=== PATIENT | male | born 1940 | race Hispanic/Latino ===

== ENCOUNTER 2017-04-25 09:48 | Observation (INO) | payer MEDICARE ==
[2017-04-25 10:11] LABS: #Eosinphils 0.1 thou/uL (0.0-0.7); #Monocytes 0.7 thou/uL (0.11-0.59); #Neutrophils 7.5 thou/uL (1.40-6.50); %Basophils 0.1 % (0.0-1.0); %Monocytes 7.2 % (0.0-10.0); Hematocrit 38.4 % (42.0-52.0); Mean Platelet Volume 7.1 fL (7.4-10.4); White Blood Cell (WBC) Count 9.3 thou/uL (4.8-10.8)
[2017-04-25 10:25] LABS: ALT (SGPT) 14 U/L (8-55); AST (SGOT) 18 U/L (5-34); Alkaline Phosphatase 89 U/L (40-150); Anion Gap 11 mmol/L (10-20); BUN (Urea Nitrogen) 9 mg/dL (8.4-25.7); Bilirubin, Total 0.6 mg/dL (0.2-1.2); Calc. Creatinine Clearance 0 mL/min (70-130); Calcium 9.5 mg/dL (7.8-10.44); Carbon Dioxide 30 mmol/L (23-31); Chloride 100 mmol/L (98-107); Estimated GFR-MDRD Greater than 90; Globulin 3.4 g/dL (2.4-3.5); Protein, Total 7.4 g/dL (5.8-8.1)
[2017-04-25 10:27] LABS: PTT 28.3 SEC (22.9-36.1); Prothrombin Time 12.8 SEC (12.0-14.7)
[2017-04-25 10:28] LABS: Troponin I Less than 0.010 ng/mL (< 0.028)
[2017-04-25 13:08] VITALS: BMI 27.1
[2017-04-25] MEDS ORDERED: Guaifenesin DM 100-10/5 ML UDCUP PO PRN (13:13)
[2017-04-25] MEDS ORDERED: Acetaminophen 325 MG TAB PO PRN (13:13)
[2017-04-25] MEDS ORDERED: HumaLOG 300 UNITS/3 ML VIAL SC PRN (13:13)
[2017-04-25] MEDS ORDERED: Senokot 8.6 MG TAB PO PRN (13:13)
[2017-04-25] MEDS ORDERED: Dextrose 5% in Water 1,000 ML IV PRN (13:13)
[2017-04-25] MEDS ORDERED: Dextrose 50% Abboject 50 ML SYRINGE SLOW IVP PRN (13:13)
[2017-04-25 13:39] LABS: Troponin I Less than 0.010 ng/mL (< 0.028)
--- NOTE | 2017-04-25 13:51 | CT ---
CT OF THE BRAIN WITHOUT CONTRAST: COMPARISON: 05/06/16. HISTORY: Right-sided facial drooping and slurred speech which has now resolved. TECHNIQUE: Multiple contiguous axial images were obtained in a CT of the brain without contrast. FINDINGS: There are stable scattered hypodensities in the subcortical and periventricular white matter, likely secondary to small-vessel ischemic disease. No large confluent infarction is seen. There is no ev idence of hydrocephalus, intracranial hemorrhage, or extraaxial fluid collection. The calvarium and overlying soft tissues are unremarkable. The visualized paranasal sinuses and mas toid air cells are well aerated. IMPRESSION: No evidence of acute intracranial abnormality. Dr. Bear notified of the findings at 9:56 a.m. on 04/25/17. CODE CR POS: JOSE
--- NOTE | 2017-04-25 15:16 | HP ---
REASON FOR ADMISSION: Dizziness with questionable facial droop and right-sided weakness. HISTORY OF PRESENTING ILLNESS: Please note patient is a poor historian and his as well at bedside. She is slightly better. They both live together. Patient apparently felt very dizzy this morning. The also noticed some facial droop, which she cannot say to which side, but on repeated questioning states maybe right side. He was not complaining of any chest pain, palpitations , PND or orthopnea then. The son called EMS and was brought here. His vital signs were stable when EMS got to him. In view of this above history of questionable facial droop with dizziness, the patient has been placed on the stroke unit to rule out transient ischemic attack. Currently, he is not dizzy. Has no facial droop. Has no weakness and moves all 4 extremities freely in the ER gurney. The also mentions that patient normally gets up to 2-3 times at night for passing urine. She does not know if he has prostate issues. The patient has no new cough or fever. No complaints of expectoration. No wounds or ulcers anywhere. The patient's mentions that he was started on gabapentin a week back for peripheral neuropathy. PAST MEDICAL AND SURGICAL HISTORY: Diabetes mellitus type 2, hypertension, dyslipidemia, GERD, history of rheumatic fever at age 23, peripheral vascular disease, occasional vertigo, likely dementia/cognitive impairment, prior history of alcohol abuse, peripheral neuropathy, benign prostatic hypertrophy, hypertriglyceridemia, hypothyroidism. No prior surgeries. PERSONAL HISTORY: No history of smoking. Does not abuse alcohol or drugs. Lives with his . FAMILY HISTORY: Father had history of NM and stroke, at the age of 72 years. Mother at the age of 53 from unknown cancer. ALLERGIES: Allergic to PENICILLIN. CURRENT MEDICATIONS: Please note patient or his recall all his medications. They go to [place]. Per prior records, patient is on aspirin 81 mg daily, Zocor 20 mg at bedtime, Prozac 20 mg daily, Aricept 10 mg at bedtime, Coreg 6.25 mg twice daily, metformin 1000 mg extended release q.p.m., gabapentin 100 mg daily. REVIEW OF SYSTEMS: The following complete review of systems was negative, unless otherwise mentioned in the HPI or below: CONSTITUTIONAL: Weight loss or gain, ability to conduct usual activities. SKIN: Rash, itching. EYES: Double vision, pain. ENT/MOUTH: Nose bleeding, neck stiffness, pain, tenderness. CARDIOVASCULAR: Palpitations, dyspnea on exertion, orthopnea. RESPIRATORY: Shortness of breath, wheezing, cough, hemoptysis, fever or night sweats. GASTROINTESTINAL: Poor appetite, abdominal pain, heartburn, nausea, vomiting, constipation, or diarrhea. GENITOURINARY: Urgency, frequency, dysuria, nocturia. MUSCULOSKELETAL: Pain, swelling. NEUROLOGIC/PSYCHIATRIC: Anxiety, depression. ALLERGY/IMMUNOLOGIC: Skin rash, bleeding tendency. PHYSICAL EXAMINATION: GENERAL: The patient is a 76-year-old male who is currently not in any acute distress. VITAL SIGNS: Blood pressure 152/76, pulse 62 per minute, respiratory rate 18 per minute, temperature 98.7 degrees Fahrenheit, saturating 98% on room air. NECK: Supple, no elevated JVD. HEENT: Eyes, extraocular muscles intact. Pupils reacting to light. Oral cavity mucous membranes are dry. No exudates or congestion. CARDIOVASCULAR: S1, S2 heard. Regular rhythm. No murmurs. RESPIRATORY: Air entry 1+ bilaterally. No rales or rhonchi. ABDOMEN: Soft, bowel sounds heard. No tenderness, rigidity or guarding. EXTREMITIES: No peripheral edema or calf tenderness. VASCULAR SYSTEM: Peripheral pulses 1+ bilateral. No ischemic ulcerations or gangrene. CENTRAL NERVOUS SYSTEM: The patient is awake, but is not fully oriented. Responds well to verbal questions. Cranial nerves are grossly intact. Motor system 5/5 in all 4 extremities. Sensory system grossly intact. Gait was not tested. PSYCHIATRIC: Cannot be accurately assessed as patient is not fully oriented. He is not having any hallucinations or delusions at present. LABORATORY AND X-RAY FINDINGS: White count of 9, H\T\H 13 and 38, platelet count 183, MCV is 96 with 80% neutrophils. PT, INR, PTT within normal limits. Potassium is 3.4, BUN 9, creatinine 0.8, glucose 153. Liver enzymes within normal limits. Troponin x2 is negative. Albumin is 4.0. CT brain done shows no acute intracranial abnormality. The patient has small vessel ischemic disease with scattered hypodensities seen in the subcortical and periventricular white matter, no intracranial bleed is seen. EKG done shows sinus rhythm at 59 beats per minute. There are signs of LVH and poor R-wave progression seen. CLINICAL IMPRESSION AND PLAN: The patient will be under observation on the stroke unit for possible transient ischemic attack. Again, this is questionable with both and are poor historians. Currently, he has no focal neurologic signs on clinical exam. We will obtain orthostatic blood pressures for his dizziness. We will also obtain B12 and folic acid levels with his MCV nearly 96. Patient was abusing alcohol earlier in his life, but none at present. We will continue him on aspirin, Coreg, Prozac, atorvastatin and metformin as before. A small dose of Flomax will be added for him in view of frequent urination and getting up at night. If patient is on Aricept, this will be held for now in view of his current dizziness. The patient has established with Dr. Tran for his Cardiology. In view of his EKG changes and current dizziness, we will consult Dr. Bonilla. We will also obtain a nuclear stress test in the morning. [facility] MED[facility] CENTERPorfirio
--- NOTE | 2017-04-25 15:36 | MRI ---
BRAIN MRI WITHOUT IV CONTRAST: History: 76-year-old male with TIA, right sided facial droop, and slurred speech which have resolved. FINDINGS: Multiplanar, multisequence MRI examination of the brain is performed. There is some atrophy and sales representative groceries tawana white matter ischemic change noted. No evidence for an acute infarct. Normal expected vascular f low voids are noted. No mass or midline shift. No acute hemorrhage. IMPRESSION: Atrophy and chronic white matter ischemic change. No mass or bleed. No evidence for acute infarct. POS: JOSE
[2017-04-25] MEDS: Sodium Chloride 0.9% 1,000 ML IV SCH (16:13)
[2017-04-25] MEDS: Carvedilol 6.25 MG TAB PO SCH (16:14)
[2017-04-25 16:35] LABS: Troponin I 0.025 ng/mL (< 0.028)
[2017-04-25] MEDS ORDERED: metFORMIN XR 500 MG TAB PO SCH (17:00)
[2017-04-25] MEDS ORDERED: Atorvastatin Calcium 10 MG TAB PO SCH (21:00)
[2017-04-25] MEDS ORDERED: Tamsulosin HCl 0.4 MG CAP PO SCH (21:00)
[2017-04-25] MEDS ORDERED: Insulin Detemir 100 UNITS/ML 10 UNITS in Pre-Filled Syringe 1 EACH SC SCH (21:00)
[2017-04-25] MEDS: Famotidine 20 MG TAB PO SCH (21:06)
--- NOTE | 2017-04-25 21:06 | ULT ---
CAROTID ULTRASOUND: History: Transient ischemic attack. Evaluate for carotid stenosis. Comparison: None. Technique: Grayscale, color flow, doppler imaging and spectral waveform analysis performed. FINDINGS: Right carotid: There is evidence of calcified and noncalcified plaque in the right carotid artery. P eak systolic velocity of the common carotid artery is 152.7 cm/sec. Peak systolic velocity internal carotid 77.7 cm/sec. Systolic ICA/CCA ratio is 0.5. Left carotid: There is evidence of calcified and noncalcified plaque in the left carotid artery. Pea k systolic velocity in the common carotid artery is 100.8 cm/sec. Peak systolic velocity internal ca rotid artery is 117.5 cm/sec. Systolic ICA/CCA ratio is 1.2. Antegrade flow in bilateral vertebral arteries. IMPRESSION: 1. Mild (50-69%) stenosis of the right common carotid artery. 2. Calcified and noncalcified plaque in the carotid arteries. 3. Better interrogation with CT angiogram of the neck can be performed on a nonemergent basis given that the patient's brain MRI is negative for acute infarction. POS: JOSE
--- NOTE | 2017-04-25 22:19 | CON ---
DATE OF ADMISSION: 04/25/2017 DATE OF CONSULTATION: 04/25/2017 INDICATION FOR CONSULTATION: A 76-year-old patient with dizziness. HISTORY OF PRESENT ILLNESS: This is a very pleasant 76-year-old gentleman, who has been seen by Dr. Tran just last week in the office as possibly some mild degree of dementia, but the says alberto osorio does not have any dementia, but today she was helping him shave, and she noticed that he had what appeared to be a possible right-sided facial droop and he was unable to walk straight. She said his gait was unsteady, to call 911. He was brought to the emergency room. There was some question whe ther or not the patient had had a possible TIA. MRI was performed. He has chronic white matter ginny nges, but no acute findings. He has also been complaining of some light discomfort, but otherwise h as had no previous significant cardiac history that we are aware of. He has had no significant dizz iness in the past. PAST MEDICAL HISTORY: Significant for peripheral neuropathy, gastroesophageal reflux disease, perip heral vascular disease. He had rheumatic fever at age 23, benign prostatic hypertrophy, hypothyroid ism, and hypertriglyceridemia as well as hypertension and diabetes. SOCIAL HISTORY: He is , he has children who are alive and well. 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 FAMILY HISTORY: His father had an MN and also possibly CVA. ALLERGIES: He is allergic to PENICILLIN. MEDICATIONS: Prior to admission included vitamin, Zocor 40 mg at bedtime, Coreg 6.25 mg b.i.d., met formin 1000 mg q.p.m., aspirin 81 mg a day, losartan 25 mg a day, gabapentin 300 mg q.p.m., and fluo xetine 20 mg q. day. Since being in the hospital, he has been placed on Tylenol, aspirin 81 mg a da y, Lipitor 10 mg a day, Coreg 6.25 mg b.i.d., Lovenox 40 mg once a day for DVT prophylaxis, Prozac 2 0 mg daily, Pepcid 20 mg b.i.d. He is on insulin per sliding scale, Flomax 0.4 mg p.o. at bedtime, and Metformin 1000 mg b.i.d. ALLERGIES: PENICILLIN. REVIEW OF SYSTEMS: He mainly complains of occasional cough and dizziness and the unsteady gait this morning. He denied any chest pain or any significant shortness of breath. Otherwise, 12 point rev iew of systems unremarkable. PHYSICAL EXAMINATION: GENERAL: Reveals an elderly gentleman. VITAL SIGNS: Blood pressure 152/70, heart rate 64 and regular. He is afebrile, respiratory rate is 18. HEENT: Shows the head to be normocephalic and atraumatic. Carotid pulses are present. I could not hear any significant bruits. There is no JVD. The thyroid is not enlarged. Oral mucosa was pink and moist. CHEST: Clear to auscultation without rales, rhonchi or wheezing. CARDIOVASCULAR: Exam reveals a regular rate and rhythm. Normal S1 and S2. There is no S3 or S4. There were no significant murmurs, heaves, thrills, bruits or rubs noted. ABDOMEN: Soft and nontender with positive bowel sounds. No organomegaly or masses are noted. Femo ral pulses are present. EXTREMITIES: Show no clubbing, cyanosis or edema. Pedal pulses are present but are decreased. SKIN: Warm and dry. NEUROLOGIC: The patient appears to be intact. EKG shows a normal sinus rhythm with no acute changes. There is some indication that his probable l eft ventricular hypertrophy with some nonspecific changes. IMPRESSION: Possible transient ischemic attack, he may have further evaluation in the future with M RI thus far is negative. He has been seen by Dr. Tran just one week ago in the office. The pat ient tells me he had a stress test sometime back, but not recently. He has not had any cardiac cath eterization that I can determine. Overall, cardiac status has thus far seen to be relatively normal . He does have some mild hyponatremia with this is not be enough because he need significant abnorm alities. I believe echocardiogram has been ordered as well as carotid Doppler, but this is yet to b e done. We will evaluate this may become available. Further care of the patient may depend on the results of these studies. Dr. Tran will resume the care of the patient tomorrow, but at this ti me, overall, he seems to be relatively stable. He does have some mild hypertension and this can be addressed by the primary care physician or Dr. Tran tomorrow when he sees the patient, but this time, he remains relatively stable.
[2017-04-26 04:37] LABS: #Eosinphils 0.1 thou/uL (0.0-0.7); #Lymphocytes 1.4 thou/uL (1.20-3.40); #Monocytes 0.8 thou/uL (0.11-0.59); %Basophils 0.2 % (0.0-1.0); %Eosinophils 1.3 % (0.0-10.0); %Lymphocytes 15.1 % (21.0-51.0); %Monocytes 8.5 % (0.0-10.0); Hematocrit 35.4 % (42.0-52.0); Mean Platelet Volume 7.3 fL (7.4-10.4); Red Blood Cell (RBC) Count 3.69 mill/uL (4.70-6.10); White Blood Cell (WBC) Count 9.3 thou/uL (4.8-10.8)
[2017-04-26 05:01] LABS: Anion Gap 9 mmol/L (10-20); BUN (Urea Nitrogen) 8 mg/dL (8.4-25.7); Calc. Creatinine Clearance 94 mL/min (70-130); Calcium 8.7 mg/dL (7.8-10.44); Carbon Dioxide 31 mmol/L (23-31); Chloride 100 mmol/L (98-107); Cholesterol 142 mg/dl (< 200 Desired); Estimated GFR-MDRD Greater than 90; LDL Cholesterol, Calculated 77 mg/dL
[2017-04-26] MEDS: Potassium Chloride 20 MEQ TAB PO SCH ×3 (08:50→17:29)
[2017-04-26] MEDS: Sodium Chloride 0.9% 1,000 ML IV SCH (08:56)
[2017-04-26] MEDS ORDERED: Aspirin 325 mg Enteric Coated Tablet PO SCH (09:00)
[2017-04-26] MEDS ORDERED: Enoxaparin Sodium 40 MG/0.4 ML SYRINGE SC SCH (09:00)
[2017-04-26] MEDS ORDERED: FLUoxetine HCl 20 MG CAP PO SCH (09:00)
[2017-04-26] MEDS ORDERED: Aspirin 81 mg Enteric Coated Tablet PO SCH (09:00)
--- NOTE | 2017-04-26 10:09 | PDOC.PN ---
- Subjective Encounter Start Date: 04/26/17 Encounter Start Time: 07:00 Subjective: awake, no dizziness now -: is amb in room -: couldn't sleep last night - Objective Resuscitation Status: Resuscitation Status FULL:Full Resuscitation MAR Reviewed: Yes Vital Signs & Weight: Vital Signs (12 hours) Temp Pulse Resp BP Pulse Ox 04/26/17 08:50 98.8 F 57 L 20 04/26/17 08:00 98.8 F 57 L 20 152/67 H 98 04/26/17 03:46 98 F 61 16 135/64 99 04/25/17 23:23 98.4 F 57 L 16 154/68 H 95 Weight Weight 168 lb I&O: 04/25/17 04/26/17 04/27/17 06:59 06:59 06:59 Intake Total 1000 Balance 1000 Result Diagrams: 04/26/17 04:05 04/26/17 04:05 Additional Labs: Accuchecks 04/25/17 04/25/17 20:22 17:19 POC Glucose 128 H 148 H Phys Exam - Physical Examination HEENT: PERRLA, sclera anicteric Neck: no JVD, supple Respiratory: no wheezing, no rales Cardiovascular: RRR, no significant murmur Gastrointestinal: soft, non-tender, positive bowel sounds Musculoskeletal: no edema, pulses present Neurological: non-focal, moves all 4 limbs Dx/Plan (1) TIA (transient ischemic attack) Status: Resolved Comment: ?right facial droop with weakness, resolved (2) Dizziness Code(s): R42 - DIZZINESS AND GIDDINESS Status: Acute (3) HTN (hypertension) Code(s): I10 - ESSENTIAL (PRIMARY) HYPERTENSION Status: Chronic Qualifiers: Hypertension type: essential hypertension Qualified Code(s): I10 - Essential (primary) hypertension (4) Carotid arterial disease Code(s): I77.9 - DISORDER OF ARTERIES AND ARTERIOLES, UNSPECIFIED Status: Acute Qualifiers: Laterality: right Qualified Code(s): I77.9 - Disorder of arteries and arterioles, unspecified Comment: 50% CCA (5) DM type 2 (diabetes mellitus, type 2) Status: Chronic Qualifiers: Diabetes mellitus complication status: with neurologic complications Diabetes mellitus complication detail: with polyneuropathy Diabetes mellitus care home insulin use: without keno terminal operator use Qualified Code(s): E11.42 - Type 2 diabetes mellitus with diabetic polyneuropathy (6) Dyslipidemia Code(s): E78.5 - HYPERLIPIDEMIA, UNSPECIFIED Status: Chronic (7) Hypokalemia Code(s): E87.6 - HYPOKALEMIA Status: Acute (8) Cognitive impairment Code(s): R41.89 - OTH SYMPTOMS AND SIGNS W COGNITIVE FUNCTIONS AND AWARENESS Status: Chronic - Plan MRI showed no ac abnormalities -: echo and stress test is pending -: PT to mobilize pt more -: d/w and daughter at bedside -: may dc if above are normal, replace K * . Review of Systems - Medications/Allergies Allergies/Adverse Reactions: Allergies Allergy/AdvReac Type Severity Reaction Status Date / Time Penicillins Allergy Verified 10/24/15 22:48 Medications: Current Medications Acetaminophen (Tylenol) 650 mg PO Q4H PRN PRN Reason: Headache/Fever or Pain Aspirin (Ecotrin) 325 mg PO DAILY [facility] Atorvastatin Calcium (Lipitor) 10 mg PO [facility] Last Admin: 04/25/17 21:06 Dose: 10 mg Carvedilol (Coreg) 6.25 mg PO BID-[facility] Last Admin: 04/25/17 16:14 Dose: 6.25 mg Dextrose/Water (Dextrose 50%) 25 gm SLOW IVP PRN PRN PRN Reason: Hypoglycemia Enoxaparin Sodium (Lovenox) 40 mg SC 0900 [facility] Famotidine (Pepcid) 20 mg PO BID [facility] Last Admin: 04/25/17 21:06 Dose: 20 mg Fluoxetine HCl (Prozac) 20 mg PO DAILY [facility] Glucagon (Glucagon) 1 mg IM PRN PRN PRN Reason: Hypoglycemia Guaifenesin/Dextromethorphan (Robitussin Dm) 15 ml PO Q4H PRN PRN Reason: Cough Dextrose/Water (D5w) 1,000 mls @ 0 mls/hr IV .Q0M PRN; As Directed PRN Reason: Hypoglycemia Sodium Chloride (Normal Saline 0.9%) 1,000 mls @ 60 mls/hr IV .[id number] [facility] Last Admin: 04/26/17 08:56 Dose: 1,000 mls Insulin Detemir 10 units/ (Miscellaneous Medication) 0.1 mls @ 0 mls/hr SC [facility] Last Admin: 04/25/17 21:07 Dose: Not Given Insulin Human Lispro (Humalog) 0 units SC .MODERATE SLIDING SC PRN PRN Reason: Moderate Correctional Scale Potassium Chloride (K-Dur) 40 meq PO TID-[facility] Last Admin: 04/26/17 08:50 Dose: 40 meq Senna (Senokot) 2 tab PO HSPRN PRN PRN Reason: Constipation Tamsulosin HCl (Flomax) 0.4 mg PO [facility] Last Admin: 04/25/17 21:06 Dose: 0.4 mg
[2017-04-26] MEDS: Carvedilol 6.25 MG TAB PO SCH ×2 (15:09→17:29)
[2017-04-26] MEDS: Famotidine 20 MG TAB PO SCH (15:24)
[2017-04-26] MEDS ORDERED: ADENOSINE 60 MG/20 ML VIAL ONE (15:41)
[2017-04-26 15:58] VITALS: BP 142/65; TEMP 98.8
--- NOTE | 2017-04-26 17:21 | NM ---
CARDIAC SPECT: CLINICAL HISTORY: 76-year-old male with dizziness, chest pain, peripheral vascular disease, hypertension, diabetes, dy slipidemia. TECHNIQUE: A myocardial perfusion scan was performed using the single isotope one day protocol with technetium- 99m sestamibi. 9 mCi were injected intravenously for the rest exam followed by 27 mCi for the stress exam. Pharmacologic stress with Adenosine was monitored and interpreted by Dr. Tran. FINDINGS: Homogeneous tracer distribution is seen in the myocardial segments on stress and rest images without fixed or reversible defects. GATED SPECT LVEF: 63%. WALL MOTION EXAM: Normal. IMPRESSION: Normal myocardial perfusion scan. POS: JOSE
--- NOTE | 2017-04-27 01:08 | DIS ---
DATE OF ADMISSION: 04/25/2017 DATE OF DISCHARGE: 04/26/2017 DISCHARGE DISPOSITION: To home. PRIMARY DISCHARGE DIAGNOSES: Dizziness resolved, questionable right facial droop with weakness resolved on arrival in the ER with suspected transient ischemic attack secondary to above, moderate right common carotid stenosis, hypertension, diabetes mellitus type 2, dyslipidemia, cognitive impairment. PROCEDURES DONE DURING HOSPITALIZATION: The patient has had initial CT brain which showed no acute intracranial abnormality. MRI done showed atrophy and chronic white matter ischemic change, no mass or bleed. No evidence of acute infarct. Nuclear stress test done showed no reversible ischemia. Carotid Doppler done showed right common carotid artery 50-69% stenosis, H\T\H 12 and 35 , platelet count 153, total cholesterol 142, triglycerides 86, LDL 77, HDL 48, vitamin B12 of 270, folic acid 13.2, troponin x3 was negative. DISCHARGE MEDICATIONS: Aspirin 81 mg p.o. daily, Plavix 75 mg p.o. daily, Coreg 6.25 mg p.o. twice daily, fluoxetine 20 mg p.o. daily, gabapentin 300 mg p.o. at bedtime, Losartan 25 mg p.o. daily, simvastatin 40 mg p.o. at bedtime, Flomax 0.4 mg p.o. daily, metformin 1000 mg p.o. extended release q.p.m. ALLERGIES: To PENICILLIN. INPATIENT CONSULTS: Dr. Evnagelista/Dr. Tran for Cardiology. BRIEF COURSE DURING HOSPITALIZATION: The patient initially got admitted with complaints of dizziness. The also mentioned that he had right-sided facial droop and right-sided weakness which got completely resolved on arrival to ER. In view of this history, he was placed under observation on the stroke unit to rule out TIA. He has had a neurocardiac workup done. His carotid ultrasound shows 50-69% stenosis on right common carotid artery with calcified plaque in both carotids. He will need outpatient consultation with Vascular Surgery for close monitoring on the carotids. The patient also had expressed that he gets up at least 2-3 times to pass urine in the night with likely benign prostatic hypertrophy. He was placed on Flomax for the same. He needs to have outpatient Urology appointment in the next 4 weeks via primary care physician. His nuclear stress test for the heart was negative and showed no reversible ischemia. Echo with 2D Doppler results are pending at present. He was evaluated by Dr. Evangelista for Cardiology. He is hemodynamically stable and will be shortly discharged home if cleared by Cardiology today. Please see a [id number] documentation on [facility] for the day of discharge. DEBBY
== END 2017-04-26 18:00 | disposition home or self-care (01) ==
LOC: ERS 09:48 → 2SE 11:27
PROVIDERS: ADMIT Internal Medicine; ATTEND Internal Medicine
DX: R42 Dizziness and giddiness (principal); I65.21 Occlusion and stenosis of right carotid artery; I10 Essential (primary) hypertension; G31.84 Mild cognitive impairment of uncertain or unknown etiology; R29.810 Facial weakness; R53.1 Weakness; K21.9 Gastro-esophageal reflux disease without esophagitis; E11.51 Type 2 diabetes mellitus with diabetic peripheral angiopathy without gangrene; E11.42 Type 2 diabetes mellitus with diabetic polyneuropathy; N40.0 Benign prostatic hyperplasia without lower urinary tract symptoms; E78.1 Pure hyperglyceridemia; E03.9 Hypothyroidism, unspecified; Z79.84 Long term (current) use of oral hypoglycemic drugs; Z79.02 Long term (current) use of antithrombotics/antiplatelets; Z79.82 Long term (current) use of aspirin; Z79.899 Other long term (current) drug therapy; Z88.0 Allergy status to penicillin; Z86.59 Personal history of other mental and behavioral disorders
CPT/HCPCS: 70450; 70551; 78452; 80048; 80053; 80061; 82553; 82607; 82746; 82962 ×2; 84484 ×2; 85025 ×2; 85610; 85730; 93005; 93017; 93306; 93880; 96360; 96361; 97116; 97139 ×4; 99285; A9500; G0378 ×2; G8978; G8979; G8980; G8987; G8988; G8989; 36415; 36416; J0153; J1815

== ENCOUNTER 2017-05-14 09:43 | Outpatient (CLI) | payer MEDICARE ==
--- NOTE | 2017-05-14 13:00 | CT ---
CT ANGIOGRAM OF THE NECK: History: I65.21 - occlusive stenosis of right carotid artery. Comparison: Color doppler ultrasound 04-25-17 FINDINGS: CT angiogram of the neck performed after the intravenous administration of contrast. 3D rendering pro vided. The lung apices are clear. No pneumothorax. No significant mediastinal adenopathy. Cervical spine alignment is normal. No fracture. No listhesis. Right side: Right common carotid artery is patent. Using NASCET criteria there is no significant sten osis of the right common or internal carotid artery. The right vertebral artery is patent. There is 5 0% stenosis of a distal intervertebral artery at the basilar artery confluence. Left side: The common carotid artery is patent. Using NASCET criteria there is no significant stenosi s within the common carotid or internal carotid artery. Left vertebral artery is patent. No significant stenosis. IMPRESSION: Using NASCET criteria there is no hemodynamically significant stenosis of the bilateral common or int ernal carotid arteries. POS: [facility]
== END 2017-05-14 09:44 | disposition home or self-care (01) ==
LOC: CT 09:43
PROVIDERS: ATTEND Thoracic Surgery (Cardiothoracic Vascular Surgery)
DX: I65.21 Occlusion and stenosis of right carotid artery (principal)
CPT/HCPCS: 70498

== ENCOUNTER 2018-04-27 11:02 | Day surgery (SDC) | payer MEDICARE ==
[2018-04-26 11:16] VITALS: BMI 27.2
--- NOTE | 2018-04-27 00:46 | HP ---
DATE OF ADMISSION: 04/27/2018 SHORT STAY HISTORY AND PHYSICAL HISTORY OF PRESENT ILLNESS: Mr. London Pantoja is a 77-year-old male who comes for a colonoscopy and EGD. The patient had a history of colon polyp and underwent polypectomy in 2011. He comes in for a followup colonoscopy. The patient's bowel movements are fairly regular. No history of any rectal bleeding. The patient also has had some abdominal pain, discomfort off and on. On physical exam, there is markedly tender epigastric area. The patient comes for EGD and a colonoscopy because of the above reason. ALLERGIES: PENICILLIN. MEDICAL ILLNESSES: 1. Hypertension. 2. Hyperlipidemia. 3. Osteoarthritis. 4. Depression. 5. Colon polyp. 6. Type 2 diabetes mellitus. 7. Peripheral vascular disease. PHYSICAL EXAMINATION: VITAL SIGNS: Pulse is 70, blood pressure 130/80. HEENT: Conjunctivae clear. CARDIOVASCULAR: First and second heart sounds were normal. LUNGS: Clear to auscultation. ABDOMEN: Abdomen is soft. Abdomen is tender over the epigastric area. There is no rebound or guarding. Bowel sounds are normal. EXTREMITIES: Reveal no edema. ADMITTING DIAGNOSES: 1. Colon polyp. 2. Marked abdominal tenderness on physical exam over the epigastric area. PLAN: EGD and colonoscopy. MTDD
[2018-04-27] MEDS ORDERED: Fentanyl 100 MCG/2 ML VIAL ONE (13:11)
[2018-04-27] MEDS ORDERED: ePHEDrine/0.9% NaCl/PF SYRINGE 50 mg/10 ml ONE (16:47)
[2018-04-27] MEDS ORDERED: PROPOFOL 200 MG/20 ML VIAL ONE (16:47)
[2018-04-27] MEDS ORDERED: Lidocaine 1% PF 5 ML VIAL ONE (16:47)
--- NOTE | 2018-04-27 19:37 | OP ---
DATE OF PROCEDURE: 04/27/2018 OPERATIVE PROCEDURE: Colonoscopy with polypectomy. PREOPERATIVE DIAGNOSIS: A 77-year-old Latin-Tongan male with history of colon polyp, comes for a colonoscopy. POSTOPERATIVE DIAGNOSES: 1. Sigmoid diverticular disease. 2. Hemorrhoids. 3. Sessile polyp distal transverse colon, status post polypectomy. 4. Retained areas of stools with some areas could not visualize. PROCEDURE IN DETAIL: The patient was placed on his left lateral position and was given sedation by Anesthesia Department. A rectal exam was done before the scope was advanced into the rectum. No lesion felt on rectal exam. A Pentax video colonoscope was introduced into the rectum and advanced all the way to the cecum. The patient had pockets of retained solid stool intermittently in the colon. Some areas could not really wash out and cleaned out. The ileocecal area, cecum, ascending colon, no pathology seen. The hepatic flexure , proximal transverse colon, no pathology seen. Over the distal transverse colon, exclusive splenic flexure. The patient had a sessile polyp. This was removed with snare cautery with good hemostasis. The descending colon, no pathology seen. The sigmoid colon showed mild diverticulitis. Rectal hemorrhoids. MTDD
--- NOTE | 2018-04-27 22:10 | OP ---
DATE OF PROCEDURE: 04/27/2018 OPERATIVE PROCEDURE: Esophagogastroduodenoscopy with biopsy. PREOPERATIVE DIAGNOSIS: Chronic acid reflux, abdominal pain. POSTOPERATIVE DIAGNOSES: 1. Irregular Z-line. 2. Markedly edematous hyperemic mucosa over the gastric antrum indicative of gastritis. 3. Normal duodenum. PROCEDURE NOTE: The patient was placed on his left lateral position and was given sedation by Anesthesia Department. A Pentax video gastroscope under direct vision was passed down the oropharynx, past the GE junction, into the stomach and subsequently into descending duodenum. The vocal cords appeared healthy. The esophageal mucosa appears normal and does not show any esophageal erosion.. However, the Z-line is irregular. Biopsy obtained from the area. In the fundus and cardia and gastric body, no pathology seen. The gastric antrum shows edematous and erythematous mucosa indicating gastritis. The duodenal bulb, descending duodenum, no pathology seen. Biopsy obtained from the gastric antrum and gastric body. The stomach was decompressed and scope removed. DISCHARGE PLANNING: This is a 77-year-old male who came for a colonoscopy and EGD. The EGD showed gastritis. The colonoscopy showed a sessile transverse colon polyp and sigmoid diverticular disease. Unfortunately , the patient did have some retained stool. DISCHARGE RECOMMENDATIONS: 1. Patient advised to call me if he does have abdominal pain, hematochezia or fever. 2. In the absence of any of above symptoms, he is to come back to me in 2 weeks. MTDD
== END 2018-04-27 16:01 | disposition home or self-care (01) ==
LOC: SDC 11:02
PROVIDERS: ATTEND Internal Medicine Gastroenterology
PROC: 0DBL8ZX Excision of Transverse Colon, Via Natural or Artificial Opening Endoscopic, Diagnostic (ICD-10-PCS; principal; 2018-04-27)
PROC: 0DB78ZX Excision of Stomach, Pylorus, Via Natural or Artificial Opening Endoscopic, Diagnostic (ICD-10-PCS; 2018-04-27)
DX: Z12.11 Encounter for screening for malignant neoplasm of colon (principal); K63.5 Polyp of colon; K29.50 Unspecified chronic gastritis without bleeding; B96.81 Helicobacter pylori [H. pylori] as the cause of diseases classified elsewhere; K20.9 Esophagitis, unspecified; K57.30 Diverticulosis of large intestine without perforation or abscess without bleeding; K64.9 Unspecified hemorrhoids; I10 Essential (primary) hypertension; E78.5 Hyperlipidemia, unspecified; M19.90 Unspecified osteoarthritis, unspecified site; F32.9 Major depressive disorder, single episode, unspecified; E11.51 Type 2 diabetes mellitus with diabetic peripheral angiopathy without gangrene; I73.9 Peripheral vascular disease, unspecified; Z86.010 Personal history of colon polyps; Z79.82 Long term (current) use of aspirin; Z79.84 Long term (current) use of oral hypoglycemic drugs; Z79.899 Other long term (current) drug therapy; Z88.0 Allergy status to penicillin
CPT/HCPCS: 88305; 88312; 88313; J2001; J2704; J3010

== ENCOUNTER 2018-07-03 17:12 | Inpatient (IN) | payer MEDICARE ==
--- NOTE | 2018-07-03 18:17 | PDOC.FPRHP ---
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 Pt was originally brought to ER for increased agitation/confusion at home and generally appearing to be unsteady on his feet. Pt has a baseline level of confusion that has worsened over the years to the point that he now forgets the names of dear loved ones. This has been acutely worsened over the last day. and daughter of the pt deny any other symptoms or complaints at this time what so ever. ED Course: Pt was started on NS 200ml/hr - Allergies/Adverse Reactions Allergies Allergy/AdvReac Type Severity Reaction Status Date / Time Penicillins Allergy Verified 10/24/15 22:48 - Home Medications Medication Instructions Recorded Confirmed Type Carvedilol [Coreg] 6.25 mg PO BID- 10/18/15 04/26/18 History Simvastatin [Zocor] 40 mg PO HS 10/18/15 04/26/18 History Vit D3-Vit K/Berberine/Hops 1 tablet PO DAILY 10/18/15 04/26/18 History [Ostera Tablet] metFORMIN HCl [Metformin ER 1,000 mg PO QPM- 10/18/15 04/26/18 History Gastric] FLUoxetine HCl [Fluoxetine HCl] 20 mg PO DAILY 04/25/17 04/26/18 History Gabapentin 300 mg PO HS 04/25/17 04/26/18 History Losartan Potassium 25 mg PO DAILY 04/25/17 04/26/18 History Tamsulosin HCl [Flomax] 0.4 mg PO BID 04/26/18 04/26/18 History Losartan Potassium 25 mg PO DAILY 07/04/18 07/04/18 History Potassium 99 mg PO DAILY 07/04/18 07/04/18 History - History PMHx: HTN, DM2, HLD, hyponatremia PSHx: none FHx: CAD, breast cancer Social: former smoker, unkown packyears, denies etoh/drugs - Review of Systems ROS unobtainable: due to mental status Respiratory: denies: shortness of breath Cardiovascular: denies: chest pain Genitourinary: denies: dysuria - Vital signs BP: [134/90] HR: [76] RR: [18] Tmax: [98.9] Pox: [100]% on [ra] Wt: [85kg] - Physical Exam Constitutional: other (mild distress due to confusion and general restlessness) HEENT: normocephalic and atraumatic, EOMI, grossly normal vision, grossly normal hearing, MMM Neck: supple, trachea midline Chest: no-tender to palpation, no lesions Heart: RRR, normal S1/S2 Lungs: CTAB, no respiratory distress Abdomen: soft, non-tender Musculoskeletal: normal structure, normal tone Neurological: no focal deficit -Neurological: A&O x1 Skin: no rash/lesions, good turgor, capillary refill <2 seconds Heme/Lymphatic: no purpura, no petechia -Psychiatric: poor judgment/insight FMR H&P: Results - Labs Result Diagrams: 07/04/18 04:40 07/04/18 04:40 FMR H&P: A/P - Problem List (1) Hyponatremia Current Visit: No Status: Acute Code(s): E87.1 - HYPO-OSMOLALITY AND HYPONATREMIA (2) Cognitive impairment Current Visit: No Status: Chronic Code(s): R41.89 - OTH SYMPTOMS AND SIGNS W COGNITIVE FUNCTIONS AND AWARENESS (3) Leukocytosis Current Visit: Yes Status: Acute Code(s): D72.829 - ELEVATED WHITE BLOOD CELL COUNT, UNSPECIFIED (4) Anemia Current Visit: Yes Status: Acute Code(s): D64.9 - ANEMIA, UNSPECIFIED (5) DM type 2 (diabetes mellitus, type 2) Current Visit: No Status: Chronic Qualifiers: Diabetes mellitus snf insulin use: without snf use Diabetes mellitus complication status: with neurologic complications Diabetes mellitus complication detail: with polyneuropathy Qualified Code(s): E11.42 - Type 2 diabetes mellitus with diabetic polyneuropathy (6) Dyslipidemia Current Visit: No Status: Chronic Code(s): E78.5 - HYPERLIPIDEMIA, UNSPECIFIED (7) HTN (hypertension) Current Visit: No Status: Chronic Code(s): I10 - ESSENTIAL (PRIMARY) HYPERTENSION Qualifiers: Hypertension type: essential hypertension Qualified Code(s): I10 - Essential (primary) hypertension - Plan 77yo M with pmh of hyponatremia and undiagnosed dementia presenting from outside ED with symptomatic hyponatremia Severe 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 Family reports hx of hyponatremia and that they have been unable to keep him from drinking copious amounts of water. P- stat recheck BMP - fluid restriction - will consider NS 3% bolus at 25ml/hr if Na does not increase - BMP Q2hr Mild Leukocytosis A- Likely stress response. No source of infection, no s/s of infection. normal CT abd, CXR, lactic acid and UA. P- will obtain procal Normocytic anemia -At baseline and likely dilutional HTN -will restart home coreg, the will obtain home meds list tricia. Will restart home meds when list is obtained. DM2 -Will restart home meds when list is obtained. -SSI, achs accuchecks HLD -Will restart home meds when list is obtained. disposition: Admit to inpatient telemetry anticipate more than 2 midnights FMR H&P: Upper Level - Pertinent history 77 yo HM with PMH of dementia, HTN, DM2, and previous episodes of hyponatremia presenting to outside ER due to vague complaints of not feeling well. On initial workup, pt was found to have a sodium of 112. Pt has a history of drinking large amounts of water and has had a sodium level as low as 104. Pt's states pt has complained of diffuse abd pain and VICTORIA and has been drinking all liquids in sight. In ER, pt received: 1500 mL NS - Pertinent findings VSS Gen: NAD but confused and somewhat agitated moving around in bed CV: RRR Resp: unlabored, CTAB Abd: BS+, nondistended, NTTP - Plan Date/Time: 07/03/181816 IBijan MD PGY3, have evaluated this patient and agree with findings/ plan as outlined by operations intern resident. Pertinent changes/additions are listed here. 1. 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 Pt did not have osmolality or urine studies done and was given NS in ER. History, however, consistent with primary polydipsia. -Will recheck BMP at this time to ensure sodium is not still decreasing. If Na is stable and not lowered, can likely transition pt to fluid restriction with close monitoring on telemetry. -If pt's sodium has decreased, will give small bolus of hypertonic 3% NS. -Avoid correction greater than 8 mmol/L in 24 hours. -BMPs q4h 2. Mild Leukocytosis -No signs or symptoms of infection with normal CT abd, CXR, lactic acid and UA. -Obtain procalcitonin, but pt likely does not need abx therapy at this time. Likely secondary to stress response. 3. Normocytic anemia -At baseline and likely somewhat dilutional, continue to monitor. disposition: Admit to inpatient telemetry for anticipated length of stay greater than two midnights, pending clinical course. Addendum - Attending - Attending Attestation Date/Time: 07/03/181936 I personally evaluated the patient and discussed the management with Dr. García and Dr. Webb I agree with the History, Examination, Assessment and Plan documented above with any addition or exceptions noted below. 77 yo male with multiple medical conditions transfered from outside ER for hyponatriemia. Patient's and daughter are historians. Patient with history of dementia and currently with acute delirum due to low sodium. Patient with past history of severe symptomatic hyponatriemia. Lowest value 104. Previous caused by polydypsia. Per family report patient has been only drinking water over the past few days. They have tried to prevent but patient continued to persistently drink fluids. Per he has complained of VICTORIA and abdominal pain. Patient have been extremely confused and restless today. VS reviewed. Labs reviewed. Imaging reviewed. Very confused on exam. Not oriented. Unable to focuse RRR. No murmurs. CTA bilaterally. No W/R/C. NT/ND. BS present 1. Severe, subacute hyponatriemia: Currently cause of delirium. Will treat with 100 mL of 3% NS. Repeat Na level in 1 to 2 hours. Will correctly slowly due to risk for ODS. Will stay around 6 mEq per 24 hours. Likely cause is polydypsia. Has past history. Will fluid restrict. Involve nephro as needed. Monitor other electrolytes. Not able to perform full work up due to use of NS x 2L prior to arrival. 2. Dementia now with acute delirium: Continue home meds. Continue to redirect as able. Try not to use chemical restriction due to possible cause of SAIDH unless really necessary. Would not use benzos if able. Family to stay at bedside. 3. HTN: Continue home meds. Past imaging/records reviewed. ECHO and stress 2017 with grossly normal cardiac function. Monitor on tele due to cardiovascular risk related to electrolyte abnormalities. 4. HLD: Continue home meds. 5. DM: Continue home meds. 6. DVT ppx: Lovenox ABrayMD
[2018-07-03 19:51] LABS: Anion Gap 15 mmol/L (10-20); BUN (Urea Nitrogen) 9 mg/dL (8.4-25.7); Calc. Creatinine Clearance 0 mL/min (70-130); Calcium 8.6 mg/dL (7.8-10.44); Carbon Dioxide 21 mmol/L (23-31); Chloride 81 mmol/L (98-107); Estimated GFR-MDRD Greater than 90; Glucose 124 mg/dL (83-110); Potassium 3.4 mmol/L (3.5-5.1)
[2018-07-03 19:54] LABS: Sodium 114 mmol/L (136-145)
[2018-07-03 21:05] VITALS: BMI 29.6
[2018-07-03] MEDS ORDERED: Dextrose 5% in Water 1,000 ML IV PRN (21:09)
[2018-07-03] MEDS ORDERED: Dextrose 50% Abboject 50 ML SYRINGE SLOW IVP PRN (21:09)
[2018-07-03] MEDS ORDERED: Acetaminophen 325 MG TAB PO PRN (21:09)
[2018-07-03] MEDS ORDERED: HumaLOG 300 UNITS/3 ML VIAL SC PRN (21:09)
[2018-07-03] MEDS ORDERED: Sodium Chloride 0.9% 1,000 ML IV SCH (21:15)
[2018-07-03] MEDS ORDERED: Enoxaparin Sodium 40 MG/0.4 ML SYRINGE SC SCH (21:30)
[2018-07-03] MEDS ORDERED: Carvedilol 6.25 MG TAB PO SCH (21:45)
[2018-07-03 21:46] LABS: Anion Gap 13 mmol/L (10-20); BUN (Urea Nitrogen) 9 mg/dL (8.4-25.7); Calc. Creatinine Clearance 96 mL/min (70-130); Calcium 8.7 mg/dL (7.8-10.44); Carbon Dioxide 21 mmol/L (23-31); Chloride 81 mmol/L (98-107); Estimated GFR-MDRD Greater than 90; Glucose 145 mg/dL (83-110); Potassium 3.2 mmol/L (3.5-5.1)
[2018-07-03 21:47] LABS: Sodium 112 mmol/L (136-145)
[2018-07-03] MEDS ORDERED: Sodium Chloride 3% 100 ML IVPB SCH (22:00)
[2018-07-03] MEDS ORDERED: Potassium Chloride 20 MEQ TAB PO SCH (22:15)
[2018-07-03] MEDS ORDERED: Metoprolol Tartrate 5 MG/5 ML VIAL IVP SCH (23:30)
[2018-07-03 23:39] LABS: Anion Gap 13 mmol/L (10-20); BUN (Urea Nitrogen) 9 mg/dL (8.4-25.7); Calc. Creatinine Clearance 93 mL/min (70-130); Calcium 8.6 mg/dL (7.8-10.44); Carbon Dioxide 20 mmol/L (23-31); Chloride 82 mmol/L (98-107); Estimated GFR-MDRD 90; Glucose 157 mg/dL (83-110); Potassium 3.2 mmol/L (3.5-5.1)
[2018-07-03 23:44] LABS: Sodium 112 mmol/L (136-145)
[2018-07-04] MEDS: Melatonin 3 MG TAB PO PRN (00:14)
[2018-07-04] MEDS ORDERED: Metoprolol Tartrate 5 MG/5 ML VIAL IVP SCH (01:00)
[2018-07-04 01:43] LABS: Anion Gap 18 mmol/L (10-20); BUN (Urea Nitrogen) 10 mg/dL (8.4-25.7); Calc. Creatinine Clearance 72 mL/min (70-130); Calcium 9.1 mg/dL (7.8-10.44); Carbon Dioxide 20 mmol/L (23-31); Chloride 81 mmol/L (98-107); Estimated GFR-MDRD 67; Glucose 142 mg/dL (83-110); Potassium 3.4 mmol/L (3.5-5.1)
[2018-07-04 01:48] LABS: Sodium 116 mmol/L (136-145)
[2018-07-04 04:50] LABS: #Monocytes 1.1 thou/uL (0.11-0.59); #Neutrophils 9.7 thou/uL (1.40-6.50); %Basophils 0.1 % (0.0-1.0); %Eosinophils 0.2 % (0.0-10.0); %Lymphocytes 8.7 % (21.0-51.0); Hemoglobin 11.9 g/dL (14.0-18.0); Mean Corpuscular HGB CONC 35.9 g/dL (32.0-36.0); Mean Corpuscular Hemoglobin 32.7 pg (27.0-31.0); Platelet Count 151 thou/uL (130-400); RBC Distribution Width 11.2 % (11.5-14.5); Red Blood Cell (RBC) Count 3.64 mill/uL (4.70-6.10); White Blood Cell (WBC) Count 11.8 thou/uL (4.8-10.8)
[2018-07-04 05:11] LABS: Anion Gap 15 mmol/L (10-20); BUN (Urea Nitrogen) 10 mg/dL (8.4-25.7); Calc. Creatinine Clearance 84 mL/min (70-130); Calcium 8.8 mg/dL (7.8-10.44); Carbon Dioxide 19 mmol/L (23-31); Chloride 85 mmol/L (98-107); Estimated GFR-MDRD 80; Glucose 157 mg/dL (83-110); Magnesium 2.1 mg/dL (1.6-2.6); Potassium 3.8 mmol/L (3.5-5.1)
[2018-07-04 05:14] LABS: Sodium 115 mmol/L (136-145)
[2018-07-04] MEDS ORDERED: Sodium Chloride 3% 100 ML IVPB SCH (05:30)
[2018-07-04] MEDS ORDERED: Sodium Chloride 3% 50 ML IVPB SCH (05:49)
--- NOTE | 2018-07-04 06:57 | PDOC.FM ---
Addendum entered and electronically signed by Joya Fernández MD 07/04/18 10:59 : Tele monitors NSR, tachycardia likely corresponing with agitation, will continue to monitor Inc Na to 118. Continue to fluid restrict, NS 100cc/hr, pending BMP, if Na dec will consult nephro, pending sodium urine studies Original Note: - Subjective Subjective: Agitated overnight, with HR up to 170s and down to 70s, required metoprol x2. No seizures. Per family, close to baseline today. - Objective MAR Reviewed: Yes Vital Signs & Weight: Vital Signs (12 hours) Temp Pulse Resp BP BP Pulse Ox 07/04/18 04:11 97.4 F L 78 20 137/63 97 07/03/18 22:33 117/67 07/03/18 22:00 97 07/03/18 20:50 98.5 F 80 16 117/67 97 Weight Weight 85.729 kg I&O: 07/02/18 07/03/18 07/04/18 06:59 06:59 06:59 Intake Total 500 Output Total 275 Balance 225 Result Diagrams: 07/04/18 04:40 07/04/18 08:33 Phys Exam - Physical Examination Constitutional: NAD HEENT: PERRLA, moist MMs Neck: full ROM Cardiovascular: RRR, no significant murmur Gastrointestinal: soft, non-tender Musculoskeletal: no edema Neurological: non-focal, moves all 4 limbs Deviation from normal: A&O x1 Dx/Plan (1) Hyponatremia Code(s): E87.1 - HYPO-OSMOLALITY AND HYPONATREMIA Status: Acute (2) Leukocytosis Code(s): D72.829 - ELEVATED WHITE BLOOD CELL COUNT, UNSPECIFIED Status: Acute (3) Cognitive impairment Code(s): R41.89 - OTH SYMPTOMS AND SIGNS W COGNITIVE FUNCTIONS AND AWARENESS Status: Chronic (4) DM type 2 (diabetes mellitus, type 2) Status: Chronic Qualifiers: Diabetes mellitus termite technician insulin use: without senior care use Diabetes mellitus complication status: with neurologic complications Diabetes mellitus complication detail: with polyneuropathy Qualified Code(s): E11.42 - Type 2 diabetes mellitus with diabetic polyneuropathy (5) HTN (hypertension) Code(s): I10 - ESSENTIAL (PRIMARY) HYPERTENSION Status: Chronic Qualifiers: Hypertension type: essential hypertension Qualified Code(s): I10 - Essential (primary) hypertension - Plan Plan: 77yo M with PMH of hyponatremia and polydipsia with acute symptomatic hyponatremia Severe 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 -SSI, achs accuchecks HLD -Pending home med list dispo: CM help with placement. BMP q4hr, if Na declines give 3%, consult nephro. Consult cards for tachy hunter syndrome. Addendum - Attending - Attending Attestation Date/Time: 07/04/18 1107 I personally evaluated the patient and discussed the management with Dr. Fernández I agree with the History, Examination, Assessment and Plan documented above with any addition or exceptions noted below. Chronic severe hyponatremia-presumed secondary to polydipsia (as patient drinks >64 oz of water daily)-patient sleeping at time of my exam, but per daughter, he was up and eating breakfast and at his baseline. No seziure activity. Will try to add urine studies to initial urine in [place] to ensure polydipsia as the cause. Increased from 114-118. D/C 3% Na and change to 100ml of NS per hour. Continue 1200 ml fluid restriction and q4 hr BMP. If drops again will consult nephrology. Tachycardia overnight- most likely secondary to agitation. Will continue to monitor now that at baseline. If returns will get EKG and consider cardiology consult
[2018-07-04 09:37] LABS: Anion Gap 14 mmol/L (10-20); BUN (Urea Nitrogen) 11 mg/dL (8.4-25.7); Calc. Creatinine Clearance 85 mL/min (70-130); Calcium 8.7 mg/dL (7.8-10.44); Carbon Dioxide 21 mmol/L (23-31); Chloride 87 mmol/L (98-107); Estimated GFR-MDRD 81; Glucose 133 mg/dL (83-110); Potassium 3.5 mmol/L (3.5-5.1)
[2018-07-04 09:40] LABS: Sodium 118 mmol/L (136-145)
[2018-07-04] MEDS: Carvedilol 6.25 MG TAB PO SCH ×2 (09:43→16:58)
[2018-07-04] MEDS ORDERED: Sodium Chloride 0.9% 1,000 ML IV SCH ×2 (11:00→16:58)
[2018-07-04] MEDS: HumaLOG 300 UNITS/3 ML VIAL SC PRN (11:33)
[2018-07-04 11:42] LABS: Calcium 8.4 mg/dL (7.8-10.44); Chloride 89 mmol/L (98-107); Potassium 3.4 mmol/L (3.5-5.1)
[2018-07-04 11:43] LABS: Glucose 214 mg/dL (83-110)
[2018-07-04 11:44] LABS: Anion Gap 14 mmol/L (10-20); Carbon Dioxide 18 mmol/L (23-31)
[2018-07-04 11:46] LABS: Calc. Creatinine Clearance 79 mL/min (70-130); Estimated GFR-MDRD 75
[2018-07-04 11:47] LABS: BUN (Urea Nitrogen) 10 mg/dL (8.4-25.7)
[2018-07-04 11:50] LABS: Sodium 118 mmol/L (136-145)
[2018-07-04 16:00] LABS: Anion Gap 14 mmol/L (10-20); BUN (Urea Nitrogen) 11 mg/dL (8.4-25.7); Calc. Creatinine Clearance 88 mL/min (70-130); Calcium 8.5 mg/dL (7.8-10.44); Carbon Dioxide 19 mmol/L (23-31); Chloride 92 mmol/L (98-107); Estimated GFR-MDRD 84; Glucose 111 mg/dL (83-110); Potassium 3.7 mmol/L (3.5-5.1); Sodium 121 mmol/L (136-145)
[2018-07-04] MEDS: metFORMIN XR 500 MG TAB PO SCH (16:58)
[2018-07-04] MEDS ORDERED: METFORMIN HCL 500 MG PO SCH (17:00)
[2018-07-04 17:44] LABS: Potassium, Urine 40.6 mmol/L
[2018-07-04] MEDS: Tamsulosin HCl 0.4 MG CAP PO SCH (20:00)
[2018-07-04] MEDS: Atorvastatin Calcium 20 MG TAB PO SCH (20:00)
[2018-07-04] MEDS ORDERED: Simvastatin 20 MG TAB PO SCH (21:00)
[2018-07-04 21:06] LABS: Anion Gap 13 mmol/L (10-20); BUN (Urea Nitrogen) 11 mg/dL (8.4-25.7); Calc. Creatinine Clearance 77 mL/min (70-130); Calcium 8.4 mg/dL (7.8-10.44); Carbon Dioxide 20 mmol/L (23-31); Chloride 93 mmol/L (98-107); Estimated GFR-MDRD 73; Glucose 152 mg/dL (83-110); Potassium 3.5 mmol/L (3.5-5.1); Sodium 122 mmol/L (136-145)
[2018-07-05 05:40] LABS: Anion Gap 11 mmol/L (10-20); BUN (Urea Nitrogen) 9 mg/dL (8.4-25.7); Calc. Creatinine Clearance 86 mL/min (70-130); Calcium 8.8 mg/dL (7.8-10.44); Carbon Dioxide 25 mmol/L (23-31); Chloride 97 mmol/L (98-107); Estimated GFR-MDRD 82; Glucose 137 mg/dL (83-110); Potassium 3.6 mmol/L (3.5-5.1); Sodium 129 mmol/L (136-145)
--- NOTE | 2018-07-05 06:55 | PDOC.FM ---
- Subjective Subjective: NAEO. Pt reports feeling "good." per , back to baseline, not agitated. slept well, no seizures - Objective MAR Reviewed: Yes Vital Signs & Weight: Vital Signs (12 hours) Temp Pulse Resp BP Pulse Ox 07/05/18 04:00 97.4 F L 62 20 116/54 L 94 L 07/04/18 20:00 98.2 F 72 16 119/56 L 97 Weight Weight 82.645 kg I&O: 07/03/18 07/04/18 07/05/18 06:59 06:59 06:59 Intake Total 500 2154 Output Total 275 1000 Balance 225 1154 Result Diagrams: 07/05/18 05:03 07/05/18 12:07 Phys Exam - Physical Examination Constitutional: NAD HEENT: PERRLA, moist MMs, sclera anicteric Neck: full ROM Gastrointestinal: soft, non-tender Neurological: non-focal, moves all 4 limbs Psychiatric: normal affect Deviation from normal: a&o x1 (baseline) Dx/Plan (1) Hyponatremia Code(s): E87.1 - HYPO-OSMOLALITY AND HYPONATREMIA Status: Acute (2) Leukocytosis Code(s): D72.829 - ELEVATED WHITE BLOOD CELL COUNT, UNSPECIFIED Status: Acute (3) Cognitive impairment Code(s): R41.89 - OTH SYMPTOMS AND SIGNS W COGNITIVE FUNCTIONS AND AWARENESS Status: Chronic (4) DM type 2 (diabetes mellitus, type 2) Status: Chronic Qualifiers: Diabetes mellitus joint terminal attack controller insulin use: without nursing home use Diabetes mellitus complication status: with neurologic complications Diabetes mellitus complication detail: with polyneuropathy Qualified Code(s): E11.42 - Type 2 diabetes mellitus with diabetic polyneuropathy (5) HTN (hypertension) Code(s): I10 - ESSENTIAL (PRIMARY) HYPERTENSION Status: Chronic Qualifiers: Hypertension type: essential hypertension Qualified Code(s): I10 - Essential (primary) hypertension - Plan Plan: 77yo M with PMH of hyponatremia and polydipsia with acute symptomatic hyponatremia Severe 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 -SSI, achs accuchecks HLD -home meds dispo: Pt Na much improved with solely fluid restriction, up 10mEq/24 hr. Up 7mEq this AM. Likely primary polydipsia based on history and response to fluid restriction. Unable to obtain appropriate urine studies. Had discussion with daughter in setting scheduled meals with fluids restrictions in order to prevent consuming too much water. Will discuss swing bed/SNF for short term PT to get stronger Addendum - Attending - Attending Attestation Date/Time: 07/05/18 9100 I personally evaluated the patient and discussed the management with Dr. Fernández I agree with the History, Examination, Assessment and Plan documented above with any addition or exceptions noted below. Hyponatremia secondary to psychogenic polydipsia- improved with fluid restriction. Off IVF since last night. Most recent Na 130. Patient asymptomatic and at baseline per . Continue fluid restriction and expect d/ c tomorrow. Deconditioning- family declines SNF so will continue PT and d/c home soon.
[2018-07-05 07:30] LABS: #Eosinphils 0.1 thou/uL (0.0-0.7); #Lymphocytes 1.2 thou/uL (1.20-3.40); #Monocytes 0.8 thou/uL (0.11-0.59); #Neutrophils 4.4 thou/uL (1.40-6.50); %Basophils 0.1 % (0.0-1.0); %Eosinophils 1.1 % (0.0-10.0); %Lymphocytes 18.3 % (21.0-51.0); %Monocytes 12.4 % (0.0-10.0); Hemoglobin 10.7 g/dL (14.0-18.0); Mean Corpuscular HGB CONC 35.2 g/dL (32.0-36.0); Mean Corpuscular Hemoglobin 32.9 pg (27.0-31.0); Mean Corpuscular Volume 93.4 fL (78.0-98.0); Platelet Count 134 thou/uL (130-400); RBC Distribution Width 11.4 % (11.5-14.5); Red Blood Cell (RBC) Count 3.24 mill/uL (4.70-6.10); White Blood Cell (WBC) Count 6.5 thou/uL (4.8-10.8)
[2018-07-05] MEDS: FLUoxetine HCl 20 MG CAP PO SCH (08:40)
[2018-07-05] MEDS: Tamsulosin HCl 0.4 MG CAP PO SCH ×2 (08:40→20:43)
[2018-07-05] MEDS: Carvedilol 6.25 MG TAB PO SCH ×2 (08:40→16:11)
[2018-07-05 12:37] LABS: Anion Gap 11 mmol/L (10-20); BUN (Urea Nitrogen) 9 mg/dL (8.4-25.7); Calc. Creatinine Clearance 78 mL/min (70-130); Carbon Dioxide 25 mmol/L (23-31); Chloride 98 mmol/L (98-107); Estimated GFR-MDRD 76; Glucose 123 mg/dL (83-110); Potassium 3.5 mmol/L (3.5-5.1); Sodium 130 mmol/L (136-145)
[2018-07-05] MEDS: metFORMIN XR 500 MG TAB PO SCH (16:12)
[2018-07-05] MEDS: HumaLOG 300 UNITS/3 ML VIAL SC PRN (17:14)
[2018-07-05 19:19] LABS: Anion Gap 11 mmol/L (10-20); BUN (Urea Nitrogen) 10 mg/dL (8.4-25.7); Calc. Creatinine Clearance 78 mL/min (70-130); Carbon Dioxide 26 mmol/L (23-31); Chloride 97 mmol/L (98-107); Estimated GFR-MDRD 76; Glucose 133 mg/dL (83-110); Potassium 3.6 mmol/L (3.5-5.1); Sodium 130 mmol/L (136-145)
[2018-07-05] MEDS: Atorvastatin Calcium 20 MG TAB PO SCH (20:43)
[2018-07-05] MEDS: Melatonin 3 MG TAB PO PRN (20:43)
--- NOTE | 2018-07-06 05:50 | PDOC.FM ---
- Subjective Subjective: NAEO. Rested well. No seizures. Back to baseline. - Objective MAR Reviewed: Yes Vital Signs & Weight: Vital Signs (12 hours) Temp Pulse Resp BP BP Pulse Ox 07/06/18 04:00 97.2 F L 63 20 131/70 98 07/05/18 19:45 99 07/05/18 19:40 98.5 F 65 16 145/67 H 99 Weight Weight 82.645 kg I&O: 07/04/18 07/05/18 07/06/18 06:59 06:59 06:59 Intake Total 500 2154 720 Output Total 275 1000 Balance 225 1154 720 Result Diagrams: 07/05/18 05:03 07/06/18 05:52 Phys Exam - Physical Examination Constitutional: NAD HEENT: PERRLA, moist MMs Respiratory: clear to auscultation bilateral Cardiovascular: RRR, no significant murmur Gastrointestinal: soft, non-tender Musculoskeletal: no edema, pulses present Neurological: non-focal, moves all 4 limbs Dx/Plan (1) Hyponatremia Code(s): E87.1 - HYPO-OSMOLALITY AND HYPONATREMIA Status: Acute (2) Leukocytosis Code(s): D72.829 - ELEVATED WHITE BLOOD CELL COUNT, UNSPECIFIED Status: Acute (3) Cognitive impairment Code(s): R41.89 - OTH SYMPTOMS AND SIGNS W COGNITIVE FUNCTIONS AND AWARENESS Status: Chronic (4) DM type 2 (diabetes mellitus, type 2) Status: Chronic Qualifiers: Diabetes mellitus assisted insulin use: without assisted use Diabetes mellitus complication status: with neurologic complications Diabetes mellitus complication detail: with polyneuropathy Qualified Code(s): E11.42 - Type 2 diabetes mellitus with diabetic polyneuropathy (5) HTN (hypertension) Code(s): I10 - ESSENTIAL (PRIMARY) HYPERTENSION Status: Chronic Qualifiers: Hypertension type: essential hypertension Qualified Code(s): I10 - Essential (primary) hypertension - Plan Plan: 77yo M with PMH of hyponatremia and polydipsia with acute symptomatic hyponatremia Severe chronic hyponatremia 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 -SSI, achs accuchecks HLD -home meds dispo: PT assessed, able to perform ADLs and walkin gindependently. Family discussed with CM, opting for home. Home today with close follow up. Addendum - Attending - Attending Attestation Date/Time: 07/06/18 9932 I personally evaluated the patient and discussed the management with Dr. Fernández I agree with the History, Examination, Assessment and Plan documented above with any addition or exceptions noted below. Psychogenic polydipsia causing hyponatremia- Na stabilized and patient at baseline. Stable for d/c home on 2L fluid restriction and f/u in 3-5 days for repeat Na level with PCP
[2018-07-06 06:50] LABS: Anion Gap 12 mmol/L (10-20); BUN (Urea Nitrogen) 11 mg/dL (8.4-25.7); Calc. Creatinine Clearance 87 mL/min (70-130); Carbon Dioxide 25 mmol/L (23-31); Chloride 97 mmol/L (98-107); Estimated GFR-MDRD 87; Glucose 120 mg/dL (83-110); Potassium 3.1 mmol/L (3.5-5.1); Sodium 131 mmol/L (136-145)
[2018-07-06] MEDS ORDERED: Potassium Chloride 20 MEQ TAB PO SCH (09:15)
[2018-07-06] MEDS: Carvedilol 6.25 MG TAB PO SCH (09:17)
[2018-07-06] MEDS: Tamsulosin HCl 0.4 MG CAP PO SCH (09:17)
[2018-07-06] MEDS: FLUoxetine HCl 20 MG CAP PO SCH (09:17)
[2018-07-06 12:53] VITALS: BP 114/53; TEMP 97.8
--- NOTE | 2018-07-07 14:49 | DIS ---
DATE OF ADMISSION: 07/03/2018 DATE OF DISCHARGE: 07/06/2018 CONSULTS: None. PROCEDURES: None. PRIMARY DIAGNOSES: 1. Severe hyponatremia secondary to primary polydipsia. 2. . 3. Hypertension. 4. Hyperlipidemia. 5. Type 2 diabetes. 6. Undiagnosed dementia. HISTORY OF PRESENT ILLNESS AND HOSPITAL COURSE: Mr. Pantoja is a 77-year-old male with suspected underlying dementia who presented to the [facility] for increased confusion and agitation. He did not have any focal neurologic deficits. Labs were pertinent for severe hyponatremia with a sodium of 114. The patient received appropriate fluids and did not experience any seizures. The patient was admitted for gradual correction of his hyponatremia. Over the 48 hours, patient's sodium improved after a 150 mL bolus of 50% normal saline and fluid restriction. Of note, family noted family said that patient drinks over a gallon of water a day and does not fluid regulate. This has happened for him in the past requiring hospital admission for severe hyponatremia. We suspected that patient has undiagnosed dementia due to his lack of insight in understanding the consequences of drinking too much water. The patient clinically improved and sodium returned to baseline. Conversation was had with family in regard to possible short versus long-term management due to the fact that patient has now been hospitalized twice for hyponatremia secondary to unregulated fluid intake. After discussion with case management, family decided on going home, but will work very hard to regulate his fluid intake. Upon discharge, the patient was at baseline mentation and clinically stable. Instructions were given to not drink more than 2 L of fluid a day. In addition, he was advised to follow up with Dr. Barnes in a few days to check sodium. DISCHARGE MEDICATIONS: 1. All home medications were resumed with no additional new ones added: 2. Ostera tablet 1 tablet p.o. daily. 3. Simvastatin 40 mg p.o. at bedtime. 4. Coreg 6.25 mg p.o. b.i.d. with meals. 5. Metformin 500 mg p.o. q.p.m. with meals. 6. Losartan potassium 200 mg p.o. daily. 7. Gabapentin 100 mg p.o. at bedtime. 8. Fluoxetine 20 mg p.o. daily. 9. Tamsulosin 0.4 mg p.o. b.i.d. 10. Potassium 99 mg p.o. daily. DISCONTINUED MEDICATIONS: None. DISPOSITION: Stable. DISCHARGE INSTRUCTIONS: 1. Location: Home. 2. Diet: Heart healthy, diabetic diet, fluid restrict, less than 2 L of fluid a day. 3. Activity: Ad marianna. 4. Followup: Follow with PCP, Dr. Barnes in few days. Job ID: [id number]
--- NOTE | 2018-07-07 22:55 | EKG ---
Test Reason : Blood Pressure : / mmHG Vent. Rate : 084 BPM Atrial Rate : 084 BPM P-R Int : 126 ms QRS Dur : 090 ms QT Int : 384 ms P-R-T Axes : 017 042 016 degrees QTc Int : 453 ms Normal sinus rhythm Normal ECG When compared with ECG of 03-JUL-2018 22:38, (Unconfirmed) ST no longer depressed in Lateral leads Confirmed by ALEISHA PAYAN M.D. ([id number]) on 07/07/2018 10:54:34 PM Referred By: LENIN Confirmed By:ALEISHA PAYAN M.D.
== END 2018-07-06 13:14 | disposition home or self-care (01) | DRG 641 ==
LOC: ERS 17:12 → 2NO 18:14
PROVIDERS: ADMIT Student in an Organized Health Care Education/Training Program; ATTEND Student in an Organized Health Care Education/Training Program
DX: E87.1 Hypo-osmolality and hyponatremia (principal); F05 Delirium due to known physiological condition; D72.829 Elevated white blood cell count, unspecified; E11.42 Type 2 diabetes mellitus with diabetic polyneuropathy; I10 Essential (primary) hypertension; R63.1 Polydipsia; D64.9 Anemia, unspecified; E78.5 Hyperlipidemia, unspecified; F03.90 Unspecified dementia, unspecified severity, without behavioral disturbance, psychotic disturbance, mood disturbance, and anxiety; Z87.891 Personal history of nicotine dependence; Z86.73 Personal history of transient ischemic attack (TIA), and cerebral infarction without residual deficits; K21.9 Gastro-esophageal reflux disease without esophagitis; M19.90 Unspecified osteoarthritis, unspecified site; F41.9 Anxiety disorder, unspecified; F32.9 Major depressive disorder, single episode, unspecified; E11.51 Type 2 diabetes mellitus with diabetic peripheral angiopathy without gangrene
CPT/HCPCS: 36415; 36416; 80048; 82436; 83735; 84133; 84145; 84300; 84443; 85025; 93005; 93010; 96360; 96361; J1650; J3475; J7050; J7131